=== PATIENT | female | born 1965 | race Caucasian/White ===

== ENCOUNTER 2016-11-14 07:17 | Emergency (ER) | payer OTHER ==
[~2016-11-14] VITALS: Ht 162.6 cm; Wt 90.7 kg
[~2016-11-14 07:17] MED LIST: AMOXICILLIN500 MG PO; AMOXIL 875 MG875 MG PO; BACTRIM DS 8001 TAB PO; COUMADIN5 M2 PO; FUROSEMIDE40 M1 PO; METOPROLOL TART50 M1 PO; NEXIUM40 M1 PO; PERCOCET 325 MG1 TA2 PO; TIROSINT25 MCG PO; TOUJEO300 U/ML SC; VITAB121000 PO
[2016-11-14 07:19] VITALS: BP 152/92
--- NOTE | 2016-11-14 08:02 | ED INFLUENZA/URI COMPLAINT ---
History of Present Illness General Chief Complaint: Upper Respiratory Sx/Fever Stated Complaint: FEVER,CONGESTION,COUGH Source: patient, family, old records Exam Limitations: no limitations Vital Signs & Intake/Output Vital Signs & Intake/Output Vital Signs Date Time Temp Pulse Resp B/P Pulse O2 O2 Flow FiO2 Ox Delivery Rate 11/14 0719 97.2 110 18 152/92 95 Room Air Allergies Coded Allergies: Iodinated Contrast Media - Oral and (IODINATED CONTRAST MEDIA - IV DYE) (PT HAS RENAL IMPAIRMENT 12/30/15) metformin (Intermediate, LEG CRAMPING 12/30/15) Reconcile Medications Albuterol Sulfate (Proair Hfa) 90 MCG HFA.AER.AD 2-4 PUF INH Q4-6 PRN PRN shortness of breath, cough Amoxicillin 875 MG TABLET 1 TAB PO BID bronchitis Benzonatate (Tessalon Perle) 100 MG CAPSULE 1 CAP PO TID PRN cough Cholecalciferol (Vitamin D3) (Vitamin D3) 400 UNIT CAPSULE 1 CAP PO DAILY SUPPLEMENT (Reported) Dulaglutide (Trulicity) 1.5 MG/0.5 ML PEN.INJCTR 1.5 MG SC QW DM (Reported) Esomeprazole (Nexium) 40 MG CAPSULE.DR 1 CAP PO DAILY GI (Reported) Furosemide 40 MG TABLET 1 TAB PO DAILY WATER PILL (Reported) Insulin Aspart Protam & Aspart (Novolog Mix 70-30 Flexpen Syrn) 100 UNIT/ML (70- 30) INSULN.PEN 54 U SC DAILY DM (Reported) Insulin Aspart Protam & Aspart (Novolog Mix 70-30 Flexpen Syrn) 100 UNIT/ML (70- 30) INSULN.PEN 50 U SC QPM DM (Reported) Metoprolol Tartrate 50 MG TABLET 1.5 TAB PO BID HEART (Reported) Warfarin Sodium (Coumadin) 5 MG TABLET 1 TAB PO DAILY BLOOD THINNER (Reported ) Triage Note: PT COMPLAINS OF URI FOR FEW DAYS. HAS BEEN COUGHING ALOT , PRODUCTIVE OF GREEN SPUTUM. AFEBRILE AT TRIAGE. COMPLAINS OF HER BACK HURTING WHEN SHE COUGHS Triage Nurses Notes Reviewed? yes Onset: Last week Duration: day(s):, continues in ED Timing: recent history Severity: moderate Prior Episodes/Possible Cause: illness exposure No Modifying Factors: none Associated Symptoms: cough, nasal congestion, sinus infection, sore throat LMP (ages 10-50): post menopausal : No Patient currently breastfeeds: No HPI: 5 days prior to admission patient complains of nasal congestion productive cough low-grade fever chills decreased appetite. She has developed mid back pain with cough. She denies chest pain shortness of breath headache nausea vomiting diarrhea abdominal pain dysuria rash bleeding. Past History Travel History Traveled to [place] past 21 day No Medical History Any Pertinent Medical History? see below for history Neurological: NONE EENT: NONE Cardiovascular: AORTIC VALVE REPLACEMENT Respiratory: NONE Gastrointestinal: NONE Hepatic: NONE Renal: HAS 1 FUNCTIONING KIDNEY Musculoskeletal: NONE Psychiatric: NONE Endocrine: diabetes, hypothyroidism Blood Disorders: NONE Cancer(s): NONE Surgical History Surgical History: tubal ligation, AORTIC VALVE REPLACEMENT Psychosocial History What is your primary language Irish Tobacco Use: Never used ETOH Use: denies use Illicit Drug Use: denies illicit drug use Family History Hx Contributory? No Review of Systems Review of Systems Constitutional: Reports: see HPI, chills, fever, malaise. EENTM: Reports: see HPI, nasal congestion. Respiratory: Reports: see HPI, cough, sputum production. Cardiovascular: Reports: no symptoms. GI: Reports: no symptoms. Genitourinary: Reports: no symptoms. Musculoskeletal: Reports: see HPI, back pain. Skin: Reports: no symptoms. Neurological/Psychological: Reports: no symptoms. Hematologic/Endocrine: Reports: no symptoms. Immunologic/Allergic: Reports: no symptoms. All Other Systems: Reviewed and Negative Physical Exam Physical Exam General Appearance: well developed/nourished, alert, awake, anxious, mild distress, obese Head: atraumatic, normal appearance Eyes: Bilateral: normal appearance, PERRL, EOMI. Ears, Nose, Throat: normal ENT inspection, moist mucous membrane, nasal congestion Neck: normal inspection, supple, full range of motion, trachea midline, lymphadenopathy (R), lymphadenopathy (L) Respiratory: normal breath sounds, chest non-tender, no respiratory distress, quiet respiration, lungs clear Cardiovascular: regular rate/rhythm, murmur, normal peripheral pulses, norml femoral pulses equa Peripheral Pulses: 4+ carotid (R), 4+ carotid (L) Gastrointestinal: normal bowel sounds, soft, non-tender, no organomegaly Back: normal inspection, normal range of motion Extremities: normal inspection, normal capillary refill, normal range of motion, no edema, no ligament instability Neurologic/Psych: no motor/sensory deficits, awake, alert, oriented x 3, normal gait, normal mood/affect, 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 Skin: intact, normal color, warm/dry Lymphatic: adenopathy Core Measures Severe Sepsis Present: No Septic Shock Present: No Progress Differential Diagnosis: influenza, pneumonia, sinusitis Plan of Care: Current Medications Sig/Saundra Start time Last Medication Dose Stop Time Status Admin Amoxicillin 750 MG ONCE ONE 11/14 844 UNVr (Amoxil) 11/14 845 Guaifenesin/ 10 ML ONCE ONE 11/14 844 UNVr Dextromethorphan 11/14 845 (Robitussin Dm) Diagnostic Imaging: Viewed by Me: Radiology Read. Discussed w/RAD: Radiology Read. CXR Impression: no acute abnormality, no infiltrates Initial ED EKG: none Departure Departure Time of Disposition: 836 Disposition: HOME OR SELF CARE Condition: Stable Clinical Impression Primary Impression: Bronchitis Referrals: DELORIS FOLEY MD (PCP/Family) Departure Forms: Customer Survey General Discharge Information Prescriptions: Current Visit Scripts Amoxicillin 1 TAB PO BID #20 TAB Benzonatate (Tessalon Perle) 1 CAP PO TID PRN cough #21 CAP Albuterol Sulfate (Proair Hfa) 2-4 PUF INH Q4-6 PRN PRN shortness of breath, cough #1 INHAL
[2016-11-14] MEDS ORDERED: VITAMIN D3400 UNIT PO (08:12)
[2016-11-14] MEDS ORDERED: TRULICITY1.5 MG/0.5 SC (08:13)
[2016-11-14] MEDS ORDERED: NOVOLOG MI100 UNIT/2 SC ×2 (08:13→08:14)
--- NOTE | 2016-11-14 08:15 | RADIOLOGY REPORT ---
EXAMINATION: XR CHEST CLINICAL INFORMATION: Productive cough, fever and back pain. Evaluate for pneumonia. COMPARISON: None TECHNIQUE: 2 views of the chest were obtained. FINDINGS: Lungs are well expanded and clear. No evidence of pulmonary consolidation or pleural effusion. Cardiac silhouette is normal in size and sternotomy wires are intact. The mediastinal and hilar contours are normal. No acute osseous findings. IMPRESSION: No acute cardiopulmonary disease.
[2016-11-14] MEDS ORDERED: TESSALON PERLE100 M1 PO (08:39)
[2016-11-14] MEDS ORDERED: PROAIR HFA8.5 GM INH (08:39)
[2016-11-14] MEDS ORDERED: AMOXICILLIN875 M1 PO (08:39)
== END 2016-11-14 09:12 ==
LOC: ERH 07:17
DX: J40 Bronchitis, not specified as acute or chronic (principal)

== ENCOUNTER 2017-03-06 21:57 | Emergency (ER) | payer OTHER ==
[~2017-03-06] VITALS: Ht 162.6 cm; Wt 91.6 kg
[~2017-03-06 21:57] MED LIST changes: +AMOXICILLIN875 M1 PO; +NOVOLOG MI100 UNIT/2 SC; +PROAIR HFA8.5 GM INH; +TESSALON PERLE100 M1 PO; +TRULICITY1.5 MG/0.5 SC; +VITAMIN D3400 UNIT PO
--- NOTE | 2017-03-06 22:09 | ED CARDIAC/CP/PALPITATIONS ---
History of Present Illness General Chief Complaint: Chest Pain Stated Complaint: CHEST DISCOMFORT, SWEATING,NAUSEA,CHEST BURNING Source: patient Exam Limitations: no limitations Vital Signs & Intake/Output Vital Signs & Intake/Output Vital Signs Date Time Temp Pulse Resp B/P B/P Pulse O2 O2 Flow FiO2 Mean Ox Delivery Rate 03/07 0238 98.7 74 18 129/80 95 Room Air 03/06 2300 98.8 80 20 138/84 97 Room Air ED Intake and Output 03/07 0000 03/06 1200 Intake Total 0 Output Total Balance 0 Intake, Oral 0 Patient 202 lb Weight Allergies Coded Allergies: Iodinated Contrast- Oral and IV Dye (IODINATED CONTRAST MEDIA - IV DYE) (PT HAS RENAL IMPAIRMENT 12/30/15) dulaglutide (From [facility]) (UNSURE 03/06/17) metformin (Intermediate, LEG CRAMPING 12/30/15) Reconcile Medications Albuterol Sulfate (Proair Hfa) 90 MCG HFA.AER.AD 2-4 PUF INH Q4-6 PRN PRN shortness of breath, cough Cholecalciferol (Vitamin D3) (Vitamin D) 2,000 UNIT CAPSULE 1 CAP PO DAILY SUPPLEMENT (Reported) Esomeprazole (Nexium) 40 MG CAPSULE.DR 1 CAP PO DAILY GI (Reported) Furosemide 40 MG TABLET 1 TAB PO DAILY WATER PILL (Reported) Insulin Aspart Protam & Aspart (Novolog Mix 70-30 Flexpen Syrn) 100 UNIT/ML (70- 30) INSULN.PEN 54 U SC DAILY DM (Reported) Insulin Aspart Protam & Aspart (Novolog Mix 70-30 Flexpen Syrn) 100 UNIT/ML (70- 30) INSULN.PEN 50 U SC QPM DM (Reported) Metoprolol Tartrate 50 MG TABLET 1.5 TAB PO BID HEART (Reported) Warfarin Sodium (Coumadin) 2.5 MG TABLET 1 TAB PO EOD BLOOD THINNER (Reported ) Warfarin Sodium (Coumadin) 5 MG TABLET 1 TAB PO EOD BLOOD THINNER (Reported) Triage Note: PER PT CENTER OF CHEST DISCOMFORT SINCE YESTERDAY, NONRADIATING 02/23. REPORTS CONSTANT ALSO X 2 DAYS HOT AND COLD SWEATS ON AND OFF. Triage Nurses Notes Reviewed? yes Onset: Gradual Duration: day(s):, waxing and waning Timing: recent history Quality/Severity: mild, moderate Location: central Radiation: no radiation Activities at Onset: none Prior Chest Pain/Card Workup: stress test, negative stress per dr. jarquin Modifying Factors: Worsens With: palpation. Associated Symptoms: chest pain, sweating, which began after starting her new diabetes medication HPI: 51 yo woman h/o [facility]ge's valve, on coumadin, diabetes, presents with 2 days of parasternal chest pain, also occasional episodes of diaphoresis, without shortness of breath or radiation. She is otherwise well. Past History Travel History Traveled to [place] past 21 day No Medical History Any Pertinent Medical History? see below for history Neurological: NONE EENT: NONE Cardiovascular: AORTIC VALVE REPLACEMENT Respiratory: NONE Gastrointestinal: NONE Hepatic: NONE Renal: HAS 1 FUNCTIONING KIDNEY Musculoskeletal: NONE Psychiatric: NONE Endocrine: diabetes, hypothyroidism Blood Disorders: NONE Cancer(s): NONE Surgical History Surgical History: tubal ligation, AORTIC VALVE REPLACEMENT Psychosocial History What is your primary language Argentine Family History Hx Contributory? No Review of Systems Review of Systems Constitutional: Reports: no symptoms. EENTM: Reports: no symptoms. Respiratory: Reports: no symptoms. Cardiovascular: Reports: no symptoms. GI: Reports: no symptoms. Genitourinary: Reports: no symptoms. Musculoskeletal: Reports: no symptoms. Skin: Reports: no symptoms. Neurological/Psychological: Reports: no symptoms. Hematologic/Endocrine: Reports: no symptoms. Immunologic/Allergic: Reports: no symptoms. All Other Systems: Reviewed and Negative Physical Exam Physical Exam General Appearance: well developed/nourished, mild distress Head: atraumatic, normal appearance Eyes: Bilateral: normal appearance, PERRL, EOMI. Ears, Nose, Throat: normal pharynx, normal ENT inspection, hearing grossly normal Neck: normal inspection, supple, full range of motion Respiratory: normal breath sounds, no respiratory distress, quiet respiration, lungs clear, parasternal chest wall tenderness to palpation. Cardiovascular: regular rate/rhythm Gastrointestinal: normal bowel sounds, soft, non-tender, no organomegaly Back: normal inspection, normal range of motion Extremities: normal inspection, normal capillary refill, normal range of motion Neurologic/Psych: no motor/sensory deficits, awake, alert, oriented x 3 Skin: intact, normal color, warm/dry Core Measures ACS in differential dx? No Severe Sepsis Present: No Septic Shock Present: No Progress Differential Diagnosis: AMI, unstable angina, costochondritis. Plan of Care: Orders Procedure Date/time Status TROPONIN LEVEL 06/22 0100 Complete EKG 03/07 100 Active PARTIAL THROMBOPLASTIN TIME 03/06 2209 Complete PROTHROMBIN TIME 03/06 2209 Complete TROPONIN LEVEL 03/06 2207 Complete LIPASE 03/06 2207 Complete COMPREHENSIVE METABOLIC PANEL 03/06 2207 Complete CBC WITHOUT DIFFERENTIAL 03/06 2207 Complete AMYLASE 03/06 2207 Complete EKG 03/06 2158 Active Laboratory Tests 03/07/1799: Troponin I < 0.01 03/06/172216: Anion Gap 11, Estimated GFR > 60, BUN/Creatinine Ratio 18.9, Glucose 139 H, Calcium 9.7, Total Bilirubin 0.6, AST 37 H, ALT 40, Alkaline Phosphatase 122, Troponin I < 0.01, Total Protein 7.6, Albumin 4.5, Globulin 3.1, Albumin/ Globulin Ratio 1.5, Amylase 76, Lipase 256, PT 32.9 H, INR 3.17 H, APTT 63 H, CBC w Diff NO MAN DIFF REQ, RBC 5.43 H, MCV 82.3, MCH 27.8, RDW 13.6, MPV 7.4, Gran % 58.1, Lymphocytes % 34.1, Monocytes % 6.3, Eosinophils % 1.0, Basophils % 0.5, Absolute Granulocytes 5.8, Absolute Lymphocytes 3.4, Absolute Monocytes 0.6 , Absolute Eosinophils 0.1, Absolute Basophils 0, PUBS MCHC 33.8 03/06/172206: PT Cancelled, INR Cancelled Diagnostic Imaging: Viewed by Me: Radiology Read. Discussed w/RAD: Radiology Read. CXR Impression: no acute abnormality, no infiltrates, normal size heart, normal mediastinum Initial ED EKG: normal axis, normal intervals, normal p-waves, normal QRS complex, normal sinus rhythm, no significant change from prior. Repeat EKG: unchanged Comments: PATIENT: RAMON MERCHANT PRESENT AGE: 51 PATIENT ACCOUNT NO: [id number] : 65 LOCATION: [facility] ORDERING PHYSICIAN: MARGE FORBES MD SERVICE DATE: 03/06/17 EXAM TYPE: RAD - XRY-PORTABLE CHEST XRAY EXAMINATION: XR PORTABLE CHEST CLINICAL INFORMATION: Chest pain. COMPARISON: Chest x-ray 11/14/2016 TECHNIQUE: Portable frontal view of the chest was obtained. 10:42 PM FINDINGS: Status post median sternotomy. No acute abnormality the chest. Lungs are clear. No pulmonary vascular congestion or pleural effusion. The heart size is normal. The cardiac and the mediastinal contours are normal. IMPRESSION: No acute abnormality of the chest. DICTATED BY: UZMA DOLAN MD DATE/TIME DICTATED:03/06/172258 WATER PLANT OPERATOR:HERNANDEZ DATE/TIME TRANSCRIBED:03/06/172258 CONFIDENTIAL, DO NOT COPY WITHOUT APPROPRIATE AUTHORIZATION. <Electronically signed in Other Vendor System> SIGNED BY: UZMA DOLAN MD 03/06/17 8253 Departure Departure Disposition: HOME OR SELF CARE Condition: Stable Clinical Impression Primary Impression: Chest pain Referrals: DELORIS FOLEY MD (PCP/Family) Departure Forms: Customer Survey General Discharge Information Comments 03/07/17, 0:28am... discussed with dr. jarquin... if patient with 2nd negative troponin, pt safe for discharge. pt has had extensive evaluation at [facility]. 03/07/17, 1:20am... discussed at length with patient. she is sleeping well, chest pain free. she feels comfortable going home, safe for discharge. She will follow up with dr. jarquin in the AM. Critical Care Note Critical Care Note Critical Care Time: non-applicable
[2017-03-06 22:25] LABS: ABSOLUTE BASOPHIL COUNT 0 /CUMM (0.0-0.2); ABSOLUTE EOSINOPHIL COUNT 0.1 /CUMM (0.0-0.7); ABSOLUTE GRANULOCYTE CT 5.8 /CUMM (1.4-6.5); ABSOLUTE LYMPH COUNT 3.4 /CUMM (1.2-3.4); ABSOLUTE MONOCYTE COUNT 0.6 /CUMM (0.10-0.60); BASOPHIL % 0.5 % (0.0-2.0); GRANULOCYTE % 58.1 % (42.2-75.2); HEMATOCRIT 44.7 % (37-47); MEAN CORPUSCULAR HGB 27.8 PG (27.0-31.0); MEAN CORPUSCULAR HGB CONC 33.8 G/DL (33.0-37.0); MEAN CORPUSCULAR VOLUME 82.3 FL (81.0-99.0); MEAN PLATELET VOLUME 7.4 FL (7.4-10.4); PLATELET COUNT 395 /CUMM (130-400); RBC DISTRIBUTION WIDTH 13.6 % (11.5-14.5); RED BLOOD CELL CT 5.43 /CUMM (4.20-5.40); WHITE BLOOD CELL COUNT 10.1 /CUMM (4.8-10.8)
[2017-03-06 22:34] LABS: PT 32.9 SEC (9.4-12.5); PTT 63 SEC (25-37)
[2017-03-06] MEDS ORDERED: COUMADIN2.5 M1 PO (22:52)
[2017-03-06] MEDS ORDERED: COUMADIN5 M2 PO (22:53)
[2017-03-06] MEDS ORDERED: VITAMIN D2000 UNIT PO (22:55)
--- NOTE | 2017-03-06 23:04 | RADIOLOGY REPORT ---
EXAMINATION: XR PORTABLE CHEST CLINICAL INFORMATION: Chest pain. COMPARISON: Chest x-ray 11/14/2016 TECHNIQUE: Portable frontal view of the chest was obtained. 10:42 PM FINDINGS: Status post median sternotomy. No acute abnormality the chest. Lungs are clear. No pulmonary vascular congestion or pleural effusion. The heart size is normal. The cardiac and the mediastinal contours are normal. IMPRESSION: No acute abnormality of the chest.
[2017-03-07 02:38] VITALS: BP 129/80
== END 2017-03-07 02:42 ==
LOC: ERH 21:57
PROVIDERS: Emergency Medicine; Pediatrics
DX: R07.2 Precordial pain (principal)
CPT/HCPCS: 93005; 93010; 96374; J0131

== ENCOUNTER 2017-03-26 13:31 | Emergency (ER) | payer OTHER ==
[~2017-03-26] VITALS: Ht 162.6 cm; Wt 93.0 kg
[~2017-03-26 13:31] MED LIST changes: +COUMADIN2.5 M1 PO; +VITAMIN D2000 UNIT PO
--- NOTE | 2017-03-26 14:50 | ED HEAD/FACIAL INJ COMPLAINT ---
History of Present Illness General Chief Complaint: Facial or Head Injury Stated Complaint: HEAD INJURY Source: patient Exam Limitations: no limitations Vital Signs & Intake/Output Vital Signs & Intake/Output Vital Signs Date Time Temp Pulse Resp B/P B/P Pulse O2 O2 Flow FiO2 Mean Ox Delivery Rate 03/26 1629 80 124/78 03/26 1346 97.3 81 20 122/79 97 Room Air Room Air Allergies Coded Allergies: Iodinated Contrast- Oral and IV Dye (IODINATED CONTRAST MEDIA - IV DYE) (PT HAS RENAL IMPAIRMENT 12/30/15) dulaglutide (From [facility]) (UNSURE 03/06/17) metformin (Intermediate, LEG CRAMPING 12/30/15) Reconcile Medications Albuterol Sulfate (Proair Hfa) 90 MCG HFA.AER.AD 2-4 PUF INH Q4-6 PRN PRN shortness of breath, cough Cholecalciferol (Vitamin D3) (Vitamin D) 2,000 UNIT CAPSULE 1 CAP PO DAILY SUPPLEMENT (Reported) Esomeprazole (Nexium) 40 MG CAPSULE.DR 1 CAP PO DAILY GI (Reported) Furosemide 40 MG TABLET 1 TAB PO DAILY WATER PILL (Reported) Insulin Aspart Protam & Aspart (Novolog Mix 70-30 Flexpen Syrn) 100 UNIT/ML (70- 30) INSULN.PEN 54 U SC DAILY DM (Reported) Insulin Aspart Protam & Aspart (Novolog Mix 70-30 Flexpen Syrn) 100 UNIT/ML (70- 30) INSULN.PEN 50 U SC QPM DM (Reported) Metoprolol Tartrate 50 MG TABLET 1.5 TAB PO BID HEART (Reported) Warfarin Sodium (Coumadin) 2.5 MG TABLET 1 TAB PO EOD BLOOD THINNER (Reported ) Warfarin Sodium (Coumadin) 5 MG TABLET 1 TAB PO EOD BLOOD THINNER (Reported) Triage Note: PT TO ED S/P "I HIT MY LEFT SIDE OF MY HEAD ON THE DOOR JAM THIS MORNING, I'M ON COUMADIN AND DR UREÑA TOLD ME TO COME IN, LAST INR: 3.9 10 DAYS AGO. Triage Nurses Notes Reviewed? yes Onset: Abrupt Severity: mild, moderate Location: parietal Method of Injury: direct blow Loss of Consciousness: no loss of consciousness HPI: 51-year-old female comes into emergency room for further evaluation of headache. Patient is on Coumadin. She whacked her head against the door frame earlier today. No loss of consciousness. No vomiting. Mild headache. Patient was told to come in to be further evaluated. Her last INR was 3.7. She is on it from aortic valve replacement many years ago. Denies any other associated symptoms. (CEDRIC CAGLE) Past History Travel History Traveled to [place] past 21 day No Medical History Any Pertinent Medical History? 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 No (CEDRIC CAGLE) Review of Systems Review of Systems Constitutional: Reports: no symptoms. EENTM: Reports: no symptoms. Respiratory: Reports: no symptoms. Cardiovascular: Reports: no symptoms. GI: Reports: no symptoms. Genitourinary: Reports: no symptoms. Musculoskeletal: Reports: no symptoms. Skin: Reports: no symptoms. Neurological/Psychological: Reports: see HPI. Hematologic/Endocrine: Reports: no symptoms. Immunologic/Allergic: Reports: no symptoms. All Other Systems: Reviewed and Negative (CEDRIC CAGLE) Physical Exam Physical Exam General Appearance: well developed/nourished, mild distress Head: atraumatic Eyes: Bilateral: normal appearance, PERRL, EOMI. Ears, Nose, Throat: normal pharynx, normal ENT inspection, hearing grossly normal Neck: normal inspection Respiratory: no respiratory distress Back: normal inspection Extremities: normal inspection, normal range of motion, no edema Psychiatric: awake, alert, oriented x 3 Cranial Nerves: normal hearing, normal speech, PERRL Coordination/Gait: normal gait Motor/Sensory: no motor/sensory deficits Skin: intact, normal color, warm/dry Lymphatic: no anterior cervical alireza (CEDRIC CAGLE) Progress Differential Diagnosis: c-spine injury, facial fracture, globe injury, ICH, orbit fracture, skull fracture Plan of Care: Orders Procedure Date/time Status PROTHROMBIN TIME 03/26 1444 Complete Laboratory Tests 03/26/17 1451: PT 33.1 H, INR 3.19 H Diagnostic Imaging: Viewed by Me: CT Scan. Discussed w/RAD: CT Scan. Radiology Impression: PATIENT: RAMON MERCHANT PRESENT AGE: 51 PATIENT ACCOUNT NO: [id number] : 65 LOCATION: [facility] ORDERING PHYSICIAN: CEDRIC YOUNG SERVICE DATE: 03/26/17 EXAM TYPE : CAT - CT HEAD WO IV CONTRAST EXAMINATION: CT HEAD WITHOUT CONTRAST CLINICAL INFORMATION: Trauma to left side of head. Headache. On Coumadin. COMPARISON: May 2011. TECHNIQUE: Contiguous helical images of the brain were obtained without IV contrast. Multiplanar reconstructions were performed. DLP: 618 mGy- cm. FINDINGS: There are no pathologic extra-axial fluid collections. The lateral , third, fourth ventricles are nondilated and concordant with the appearance of the sulci. There is no evidence for acute intraparenchymal hemorrhage or infarct. There is neither mass nor mass effect. There is no shift of midline structures. The paranasal sinuses and mastoid air cells are clear. There are no osseous lesions. IMPRESSION: No evidence for acute intracranial injury. DICTATED BY: ERICK MORA MD DATE/TIME DICTATED:03/26/171532 J2EE ARCHITECT: HERNANDEZ DATE/TIME TRANSCRIBED:03/26/171532 CONFIDENTIAL, DO NOT COPY WITHOUT APPROPRIATE AUTHORIZATION. <Electronically signed in Other Vendor System> SIGNED BY: ERICK MORA MD 03/26/17 1544 (CEDRIC CAGLE) Departure Departure Disposition: HOME OR SELF CARE Condition: Stable Clinical Impression Primary Impression: Head injury Referrals: DELORIS FOLEY MD (PCP/Family) Additional Instructions: hold your Coumadin for the next 24 hours. Have INR rechecked in 3 days. Return if any concerns worsening symptoms. Tylenol for pain. Please go over all results of today's visit with your primary care doctor. Contact your primary care doctor to let them know you were here in the emergency room. There may be nonspecific findings which may not be related to your visit today here in the emergency room but may require further evaluation and chronic monitoring by your primary care doctor. If you had a laceration today the chance of foreign body always remains. You should follow-up with your primary care doctor for recheck in 3-5 days for a wound check. If you had an x-ray done there is a chance that a fracture could have been missed on initial read and you should follow-up with your primary care doctor for repeat x-rays if symptoms persist. If your blood pressure was elevated here in the emergency room please have rechecked by her primary care doctor within the next 48 hours by your primary care doctor. If you were prescribed a narcotic here in the emergency room or any type of controlled substances you're not allowed to drive while taking this medication or operate any type of heavy machinery. Narcotics can make you feel lightheaded dizziness nausea and can cause constipation. You may need to seed cone picker a stool softener. Thank you for choosing [facility] emergency room. Please return to the emergency room immediately if you have any other concerns worsening of symptoms. Departure Forms: Customer Survey General Discharge Information Comments 03/26/2017 4:18:04 PM No evidence of acute trauma. Patient clinically looks well. Patient is no apparent distress. Nontoxic appearing. Neurologically intact. Instructed to hold Coumadin for the next 24 hours and then resume his normal. Return if any worsening symptoms. Discussed the possibility of delayed bleeding at this time patient looks well and has no symptoms. (CEDRIC CAGLE) PA/COFFEE TASTER Co-Sign Statement Statement: ED Attending supervision documentation- I saw and evaluated the patient. I have also reviewed all the pertinent lab results and diagnostic results. I agree with the findings and the plan of care as documented in the PA's/COFFEE TASTER's documentation. x I have reviewed the ED Record and agree with the PA's/COFFEE TASTER's documentation. [] Additions or exceptions (if any) to the PAs/COFFEE TASTER's note and plan are summarized below: [] (DOMINIC RAMOS,HUONG)
[2017-03-26 15:10] LABS: PT 33.1 SEC (9.4-12.5)
--- NOTE | 2017-03-26 15:44 | CT SCAN REPORT ---
EXAMINATION: CT HEAD WITHOUT CONTRAST CLINICAL INFORMATION: Trauma to left side of head. Headache. On Coumadin. COMPARISON: May 2011. TECHNIQUE: Contiguous helical images of the brain were obtained without IV contrast. Multiplanar reconstructions were performed. DLP: 618 mGy-cm. FINDINGS: There are no pathologic extra-axial fluid collections. The lateral, third, fourth ventricles are nondilated and concordant with the appearance of the sulci. There is no evidence for acute intraparenchymal hemorrhage or infarct. There is neither mass nor mass effect. There is no shift of midline structures. The paranasal sinuses and mastoid air cells are clear. There are no osseous lesions. IMPRESSION: No evidence for acute intracranial injury.
[2017-03-26 16:29] VITALS: BP 124/78
== END 2017-03-26 16:30 ==
LOC: ERH 13:31
PROVIDERS: Physician Assistant Medical
DX: S09.90XA Unspecified injury of head, initial encounter (principal); Z79.01 Long term (current) use of anticoagulants; W22.8XXA Striking against or struck by other objects, initial encounter; Y92.9 Unspecified place or not applicable; Y93.9 Activity, unspecified